=== PATIENT | female | born 1980 | race Caucasian/White ===

== ENCOUNTER 2018-06-09 12:01 | Emergency (ER) | payer MEDICAID ==
[2018-06-09] MEDS ORDERED: SODIUM CHLORIDE 0.9% (FLUSH) 10 ML SYG IV PRN (13:18)
[2018-06-09] MEDS ORDERED: SODIUM CHLORIDE 0.9% 1000ML 1,000 ML IVS PRN (13:18)
[2018-06-09] MEDS ORDERED: IPRATROPIUM/ALBUTEROL 3 ML VIAL INH ONE (13:18)
[2018-06-09] MEDS ORDERED: ONDANSETRON INJ 4 MG/2 ML VIAL IV ONE (13:20)
[2018-06-09] MEDS ORDERED: KETOROLAC TROMETHAMINE INJ 30 MG/ML VIAL IV ONE (13:20)
--- NOTE | 2018-06-09 13:55 | ED.PDOC ---
History of Present Illness - General Chief Complaint: General Stated Complaint: COUGH Time Seen by Provider: 06/09/18 12:56 Source: patient Exam Limitations: no limitations - History of Present Illness Initial Comments: PT PRESENTS TO THE ED FROM CLINIC DUE TO COUGH FOR THE PAST 5 WEEKS PRODUCTIVE OF GREENISH BLOOD TINGED SPUTUM. PT REPORTS SOB, NAUSEA, VOMITING, AND RIGHT SIDED ABDOMINAL PAIN FOR THE PAST 5 WEEKS WELL. PT WAS FOUND TO BE HYPERTENSIVE IN CLINIC AND TOLD TO COME TO THE ED FOR EVALUATION. Timing/Duration: getting worse Severity: moderate Improving Factors: nothing Worsening Factors: nothing Associated Symptoms: cough, nausea/vomiting, shortness of breath Allergies/Adverse Reactions: Allergies NSAIDs Allergy (Verified 06/09/18 14:22) Home Medications: Ambulatory Orders Albuterol Inhaler [Ventolin Hfa Inhaler] 2 puff INH Q4HR PRN #1 inh 06/09/18 Azithromycin Tab [Zithromax] 250 mg PO QD #4 tab 06/09/18 Benzonatate Perles [Tessalon Perles] 200 mg PO TID PRN #30 cap 06/09/18 Prednisone 50 mg PO DAILY 4 Days #4 tab 06/09/18 Tramadol-Acetaminophen [Ultracet] 1 - 2 tab PO Q6HR PRN #30 tab 06/09/18 Review of Systems - Review of Systems Constitutional: Denies: chills, fever EENTM: Denies: nose congestion, throat pain Respiratory: States: cough, short of breath Cardiology: Denies: chest pain, palpitations Gastrointestinal/Abdominal: States: see HPI, abdominal pain, nausea, vomiting Genitourinary: Denies: dysuria, frequency Musculoskeletal: Denies: joint pain, joint swelling Skin: Denies: dryness, lesions Neurological: Denies: headache, numbness Past Medical History (General) - Patient Medical History Surgical History: appendectomy, cholecystectomy, other - HYSTERECTOMY Physical Exam - Physical Exam General Appearance: Alert, No apparent distress, Obese, Well Groomed, Well Hydrated Eye Exam: bilateral normal Ears, Nose, Throat: hearing grossly normal Neck: supple, normal inspection Respiratory: no respiratory distress, wheezing Cardiovascular/Chest: regular rate, rhythm, no murmur Gastrointestinal/Abdominal: soft, tenderness - RUQ Neurologic: alert, normal mood/affect, oriented x 3 Skin Exam: normal color, warm/dry Progress - Progress Progress: 06/09/18 15:17 PT CONTINUES TO COMPLAIN OF PAIN DESPITE [place] IN THE ED. LABS AND DIAGNOSTICS DISCUSSED. WILL D/C WITH TX FOR ACUTE BRONCHITIS AND ABD WALL PAIN. - Results/Orders Results/Orders: Laboratory Tests 06/09/18 06/09/18 13:00 13:00 WBC 9.2 RBC 5.29 Hgb 14.3 Hct 42.5 MCV 80.2 L MCH 26.9 L MCHC 33.6 RDW 13.9 Plt Count 385 MPV 8.0 Absolute Neuts (auto) 6.20 Absolute Lymphs (auto) 1.80 Absolute Monos (auto) 0.70 Absolute Eos (auto) 0.40 Absolute Basos (auto) 0.10 Neutrophils % 67.2 Lymphocytes % 19.5 L Monocytes % 7.6 Eosinophils % 4.9 Basophils % 0.8 Sodium 134 L Potassium 3.8 Chloride 101 Carbon Dioxide 22 Anion Gap 14.8 BUN 12 Creatinine 0.54 L BUN/Creatinine Ratio 22.2 H Random Glucose 113 H Serum Osmolality 268.8 L Calcium 8.8 Total Bilirubin 0.7 AST 69 H ALT 55 Alkaline Phosphatase 66 B-Natriuretic Peptide 6.4 Serum Total Protein 7.5 Albumin 3.5 Globulin 4.0 H Albumin/Globulin Ratio 0.9 L - EKG/XRAY/CT EKG: Sinus - @92BPM, QTC 482 MS, NL AXIS, POOR R WAVE PROGRESSION, no ST T wave changes - NO OLD EKG FOR COMPARISON. Departure - Departure Clinical Impression: Acute bronchitis, Abdominal wall pain, Tobacco abuse, Nausea and vomiting Time of Disposition: 15:19 Disposition: Discharge to Home or Self Care Condition: Good Departure Forms: ED Discharge - Pt. Copy, Patient Portal Self Enrollment Instructions: Acute Bronchitis, Adult (DC), Quitting Smoking, Nausea and Vomiting, Adult (DC) Referrals: Floresita Ferrer PERISHABLE FREIGHT INSPECTOR [Primary Care Provider] - 1-5 Days Prescriptions: Albuterol Inhaler [Ventolin Hfa Inhaler] 2 puff INH Q4HR PRN #1 inh PRN Reason: Shortness Of Breath/Wheezing Tramadol-Acetaminophen [Ultracet] 1 - 2 tab PO Q6HR PRN #30 tab PRN Reason: Pain Azithromycin Tab [Zithromax] 250 mg PO QD #4 tab Benzonatate Perles [Tessalon Perles] 200 mg PO TID PRN #30 cap PRN Reason: Cough Prednisone 50 mg PO DAILY 4 Days #4 tab Home Medications: Ambulatory Orders Albuterol Inhaler [Ventolin Hfa Inhaler] 2 puff INH Q4HR PRN #1 inh 06/09/18 Azithromycin Tab [Zithromax] 250 mg PO QD #4 tab 06/09/18 Benzonatate Perles [Tessalon Perles] 200 mg PO TID PRN #30 cap 06/09/18 Prednisone 50 mg PO DAILY 4 Days #4 tab 06/09/18 Tramadol-Acetaminophen [Ultracet] 1 - 2 tab PO Q6HR PRN #30 tab 06/09/18
--- NOTE | 2018-06-09 14:06 | RAD ---
Procedure: XR CHEST 1 VIEW Exam Date: 06/09/2018 Ordering Provider: Molly Lindsay Clinical Indication: COUGH/SOB Comparison: 06/06/2018 Findings: Cardiomegaly. No focal lung consolidation. No pleural effusion. No pneumothorax. No acute osseous abnormality. Impression: 1. No acute abnormality in the chest. Electronically signed by: Leodan Jorge MD 06/09/2018 2:03 PM CDT
[2018-06-09] MEDS ORDERED: HYDROcodone 10MG/APAP 325MG 1 EA TAB PO ONE (14:30)
[2018-06-09] MEDS ORDERED: HYDROcodone 10MG/APAP 325MG 1 EA TAB ONE (14:30)
[2018-06-09] MEDS ORDERED: AZITHROMYCIN 250 MG TAB PO ONE (15:21)
[2018-06-09] MEDS ORDERED: predniSONE 20 MG TAB PO ONE (15:22)
[2018-06-11 11:30] VITALS: TEMP 98.1
[2018-06-11 11:39] VITALS: BP 152/89; O2SAT 94
== END 2018-06-09 15:25 | disposition home or self-care (01) ==
LOC: ER 12:01
DX: J20.9 Acute bronchitis, unspecified (principal); R10.9 Unspecified abdominal pain; R11.2 Nausea with vomiting, unspecified; F17.200 Nicotine dependence, unspecified, uncomplicated; Z88.6 Allergy status to analgesic agent; Z90.49 Acquired absence of other specified parts of digestive tract
CPT/HCPCS: 71045; 80053; 81001; 83880; 85025; 93005; 94640; J2405; J7030; J7512; J7620; Q0144

== ENCOUNTER → 2018-07-27 | Outpatient (CLI) | payer MEDICAID | LOC: SL 18:51 | PROVIDERS: ATTEND Nurse Practitioner Family | DX: G47.30 Sleep apnea, unspecified (principal) ==

== ENCOUNTER 2018-09-10 21:12 | Emergency (ER) | payer OTHER ==
[2018-09-10] MEDS ORDERED: CLOPIDOGREL 75 MG TAB PO ONE (21:31)
[2018-09-10] MEDS ORDERED: LACTATED RINGERS 1,000 ML IVS ONE (21:31)
--- NOTE | 2018-09-10 21:32 | ED.PDOC ---
History of Present Illness - General Chief Complaint: Chest Pain/SD Stated Complaint: chest pain for 4 days Time Seen by Provider: 09/10/18 21:30 Source: patient Exam Limitations: no limitations - History of Present Illness Initial Comments: Gina Holland 37 y/o female came to ER stating had constant chest heaviness- feel someone standing on her chest and stabbing pain right side of her chest for the last 4 days,with SOB and occasional N/V.Had cardiac cath 7 years ago was negative.She is taking medication for HBP. Timing/Duration: days - 4 Severity: moderate Location: central Activities at Onset: none Prior Chest Pain/Cardiac Workup: cardiac cath Improving Factors: nothing Worsening Factors: nothing Nitro Today/Relief: no nitro taken today Aspirin Treatment Today: no aspirin today - has allergies to NSAIDS-given plavix Allergies/Adverse Reactions: Allergies Cephalexin [From Keflex] Allergy (Verified 06/11/18 11:43) Nitrofurantoin [From Macrobid] Allergy (Verified 06/11/18 11:43) NSAIDs Allergy (Verified 06/09/18 14:22) Tramadol Allergy (Verified 07/17/18 17:56) Home Medications: Ambulatory Orders Carvedilol 6.25 mg PO BID 07/19/18 Alprazolam 0.5 mg PO DAILY 09/10/18 Citalopram Hydrobromide [Citalopram] 20 mg PO DAILY 09/10/18 Hydrochlorothiazide 25 mg PO DAILY 09/10/18 Losartan Potassium 50 mg PO DAILY 09/10/18 Nifedipine [Nifedipine ER] 30 mg PO DAILY 09/10/18 Pantoprazole Tablet [Protonix] 40 mg PO ACBK 09/10/18 Review of Systems - Review of Systems Constitutional: States: no symptoms reported EENTM: States: no symptoms reported Respiratory: States: no symptoms reported Cardiology: States: see HPI Gastrointestinal/Abdominal: States: no symptoms reported Genitourinary: States: no symptoms reported Musculoskeletal: States: no symptoms reported Skin: States: no symptoms reported Endocrine: States: no symptoms reported Hematologic/Lymphatic: States: no symptoms reported All other Systems: Reviewed and Negative, No Change from Baseline Past Medical History (General) - Patient Medical History Hx Stroke: No Hx of COPD: - Hx of treated TB Hx Cardiac Disorders: Yes Hx Congestive Heart Failure: No Hx Hypertension: Yes Hx Diabetes: No Hx Cancer: Yes - Cervical Surgical History: appendectomy, cholecystectomy, other - cardiac cath;hysterectomy - Vaccination History Hx Tetanus, Diphtheria Vaccination: Yes Hx Influenza Vaccination: No Hx Pneumococcal Vaccination: No - Social History Hx Tobacco Use: Yes Hx Physical Abuse: No Hx Emotional Abuse: No Family Medical History - Family History Mother Living Status: Still Living Hx Family Cancer: Yes - parents-small lung CA Physical Exam - Physical Exam General Appearance: Alert, Comfortable, No apparent distress Eyes, Ears, Nose, Throat Exam: normal ENT inspection Neck: non-tender, full range of motion, supple Respiratory: lungs clear, normal breath sounds, no respiratory distress, other - tenederness right rib cage Cardiovascular/Chest: normal peripheral pulses, regular rate, rhythm, no murmur Peripheral Pulses: radial,right: 2+, radial,left: 2+ Gastrointestinal/Abdominal: non tender, soft, no organomegaly Extremity: no pedal edema, no calf tenderness Neurologic: alert, oriented x 3 Skin Exam: normal color, warm/dry Lymphatic: no adenopathy Progress - Progress Progress: 09/10/18 23:30 Vital Signs - 8 hr 09/10/18 09/10/18 09/10/18 21:23 21:25 23:02 Pulse Rate [ 111 H 97 H Left] Respiratory 22 Rate Blood Pressure 114/85 106/64 [Right Radial Artery] O2 Sat by Pulse 97 95 91 L Oximetry 09/11/18 01:16 Discuss all test result with patient explaining no myocardial injury but her CTA-Chest with report of could not rule out small pulmonary embolus since inadequate visualization of pulmonary arteries due to inadequate dye uptake;Discuss further testing with V/Q scan with patient that she needs to be transferred to [facility] by ambulance where they have machine to perform the test since we could not repeat the CTA-chest w/c might cause kidney damage but declined to go will sign AMA and call up her primary Md in am. Discuss the seriousness of the findings and understands. - Results/Orders Results/Orders: Laboratory Tests 09/10/18 09/10/18 09/10/18 21:20 21:20 21:31 WBC 8.2 RBC 4.70 Hgb 12.7 Hct 37.6 MCV 80.0 L MCH 26.9 L MCHC 33.6 RDW 15.9 H Plt Count 268 MPV 7.0 L Absolute Neuts (auto) 3.90 Absolute Lymphs (auto) 3.10 Absolute Monos (auto) 0.80 Absolute Eos (auto) 0.20 Absolute Basos (auto) 0.10 Neutrophils % 47.9 Lymphocytes % 38.5 Monocytes % 10.0 H Eosinophils % 2.6 Basophils % 1.0 ESR PT 10.0 INR 1.00 PTT (SP) 28.0 D-Dimer, Quantitative 0.65 H* Sodium 137 Potassium 3.5 L Chloride 101 Carbon Dioxide 26 Anion Gap 13.5 BUN 15 Creatinine 0.71 BUN/Creatinine Ratio 21.1 H Random Glucose 144 H Serum Osmolality 277.2 Calcium 8.9 Magnesium 1.9 Total Bilirubin 0.6 Direct Bilirubin 0.1 Indirect Bilirubin 0.5 AST 49 H ALT 55 Alkaline Phosphatase 77 Creatine Kinase 20 L CK-MB (CK-2) 0.4 CK-MB (CK-2) % Not Reportable Troponin I < 0.02 B-Natriuretic Peptide < 5.0 Serum Total Protein 7.4 Albumin 3.4 Urine Color Urine Appearance Urine pH Ur Specific [place] Urine Protein Urine Glucose (UA) Urine Ketones Urine Blood Urine Nitrite Urine Bilirubin Urine Urobilinogen Ur Leukocyte Esterase Urine RBC Urine WBC Ur Epithelial Cells Urine Bacteria Urine Opiates Screen Positive H Urine Barbiturates Negative Ur Phencyclidine Scrn Negative U Amphetamin/Meth Scrn Negative U Benzodiazepines Scrn Positive H U Cocaine Metab Screen Negative U Cannabinoids Screen Negative 09/10/18 09/10/18 09/10/18 22:25 22:35 23:34 WBC RBC Hgb Hct MCV MCH MCHC RDW Plt Count MPV Absolute Neuts (auto) Absolute Lymphs (auto) Absolute Monos (auto) Absolute Eos (auto) Absolute Basos (auto) Neutrophils % Lymphocytes % Monocytes % Eosinophils % Basophils % ESR 37 H PT INR PTT (SP) D-Dimer, Quantitative Sodium Potassium Chloride Carbon Dioxide Anion Gap BUN Creatinine BUN/Creatinine Ratio Random Glucose Serum Osmolality Calcium Magnesium Total Bilirubin Direct Bilirubin Indirect Bilirubin AST ALT Alkaline Phosphatase Creatine Kinase CK-MB (CK-2) CK-MB (CK-2) % Troponin I < 0.02 B-Natriuretic Peptide Serum Total Protein Albumin Urine Color Yellow Urine Appearance Clear Urine pH 7.0 Ur Specific [place] 1.025 Urine Protein Negative Urine Glucose (UA) Negative Urine Ketones Negative Urine Blood Negative Urine Nitrite Negative Urine Bilirubin Negative Urine Urobilinogen 0.2 Ur Leukocyte Esterase Negative Urine RBC 0 Urine WBC 1-3 Ur Epithelial Cells 5-10 Urine Bacteria 2+ H Urine Opiates Screen Urine Barbiturates Ur Phencyclidine Scrn U Amphetamin/Meth Scrn U Benzodiazepines Scrn U Cocaine Metab Screen U Cannabinoids Screen - EKG/XRAY/CT EKG: Sinus, Tachy, no ST T wave changes, Unchanged from - 09 june 2018;17 Jul 2018 Comments: HR-115 XRAY: chest - no acute abnormalities Departure - Departure Clinical Impression: Elevated d-dimer Chest pain Qualifiers: Chest pain type: unspecified Qualified Code(s): R07.9 - Chest pain, unspecified Time of Disposition: 01:30 Disposition: Left Against Medical Advice Condition: Fair Departure Forms: ED Discharge - Pt. Copy, Patient Portal Self Enrollment Instructions: DI for Chest Pain Referrals: Floresita Ferrer NP [Primary Care Provider] - 1-2 Weeks Home Medications: Ambulatory Orders Carvedilol 6.25 mg PO BID 07/19/18 Alprazolam 0.5 mg PO DAILY 09/10/18 Citalopram Hydrobromide [Citalopram] 20 mg PO DAILY 09/10/18 Hydrochlorothiazide 25 mg PO DAILY 09/10/18 Losartan Potassium 50 mg PO DAILY 09/10/18 Nifedipine [Nifedipine ER] 30 mg PO DAILY 09/10/18 Pantoprazole Tablet [Protonix] 40 mg PO ACBK 09/10/18 Additional Instructions: Return to emergency room as needed
--- NOTE | 2018-09-10 21:51 | RAD ---
EXAM DESCRIPTION: AP view of the chest CLINICAL HISTORY:37 years Female, chest pain Comparison: None FINDINGS: No focal lung consolidation. Lung volumes are decreased. No pleural effusion. No pneumothorax. Cardiac and mediastinal silhouette is unremarkable. No acute osseous abnormality. Soft tissues are unremarkable. IMPRESSION: No acute findings. No focal lung consolidation. Electronically signed by: Jaxon Sullivan DO 09/10/2018 9:49 PM CDT
[2018-09-10] MEDS ORDERED: PROCHLORPERAZINE INJ 10 MG/2 ML VIAL IV ONE (22:11)
[2018-09-10] MEDS ORDERED: SUCRALFATE 1 GM/10 ML 1 GM UD PO ONE (22:11)
[2018-09-10] MEDS ORDERED: ALUM & MAG HYDROX-SIMETHICONE 30 ML, LIDOCAINE VISCOUS 2% 15 ML PO ONE ×2 (22:11)
[2018-09-10] MEDS ORDERED: MORPHINE SULFATE INJ 10 MG/ML VIAL IV ONE (22:11)
[2018-09-10] MEDS ORDERED: LIDOCAINE HCL 2% (MOUTH-THROAT) 15 ML UD ONE (22:13)
[2018-09-10] MEDS ORDERED: ALUM & MAG HYDROX-SIMETHICONE 30 ML UD ONE (22:14)
--- NOTE | 2018-09-10 23:37 | CT ---
PROCEDURE: CTA Chest CLINICAL HISTORY: 37 years Female elevated d- dimer;chest pain TECHNIQUE: Contiguous axial CT images obtained through the chest were obtained from the thoracic inlet to the level of the upper abdomen during the pulmonary arterial phase of intravenous contrast administration. Coronal and sagittal reformatted, and oblique coronal MIP images provided. This CT exam was performed according to our departmental dose-optimization program, which includes one or more of the following dose reduction techniques: automated exposure control, adjustment of the mA and/or kV according to patient size, and/or use of iterative reconstruction technique. COMPARISON: No prior exams provided for comparison. FINDINGS: Cannot exclude small pulmonary emboli on this examination, which is limited by suboptimal contrast. Opacification of the pulmonary arteries in the main pulmonary artery averages less than 200 HU. . The thoracic aorta is normal without aneurysm or dissection. The heart is borderline in size without pericardial effusion. The lungs are clear without consolidation, effusion, or pneumothorax. No enlarged mediastinal lymph nodes. Steatosis of the liver with suspected hepatosplenomegaly, incompletely imaged. No acute osseous abnormality. IMPRESSION: Cannot exclude small pulmonary emboli due to suboptimal contrast opacification of the pulmonary arteries. No visualized acute findings in the chest. Electronically signed by: Reyna Clark MD 09/10/2018 11:35 PM CDT
[2018-09-11 01:01] VITALS: O2SAT 95
[2018-09-11 01:03] VITALS: BP 95/66
[2018-09-11] MEDS ORDERED: HYDROCOD/APAP 7.5/325 (ER DISP) #3 TAB PO ONE (01:27)
[2018-09-11 01:43] VITALS: TEMP 97.9
== END 2018-09-11 01:36 | disposition left against medical advice (07) ==
LOC: ER 21:12
DX: R07.9 Chest pain, unspecified (principal); R79.89 Other specified abnormal findings of blood chemistry; R06.02 Shortness of breath; R11.2 Nausea with vomiting, unspecified; I51.9 Heart disease, unspecified; I10 Essential (primary) hypertension; Z53.29 Procedure and treatment not carried out because of patient's decision for other reasons; Z87.891 Personal history of nicotine dependence; Z85.41 Personal history of malignant neoplasm of cervix uteri; Z86.11 Personal history of tuberculosis; Z79.899 Other long term (current) drug therapy; Z88.1 Allergy status to other antibiotic agents; Z88.8 Allergy status to other drugs, medicaments and biological substances; Z88.6 Allergy status to analgesic agent; Z88.5 Allergy status to narcotic agent
CPT/HCPCS: 36415; 71045; 71275; 80048; 80076; 80307; 81001; 82550; 82553; 83880; 84484; 85025; 85379; 85610; 85651; 85730; 93005; 94760; J0780; J2270; J7120

== ENCOUNTER 2018-10-05 12:54 | Emergency (ER) | payer OTHER ==
[2018-10-05 13:42] VITALS: TEMP 98
--- NOTE | 2018-10-05 14:11 | ED.PDOC ---
History of Present Illness - General Chief Complaint: Problem Stated Complaint: anuria Time Seen by Provider: 10/05/18 13:39 Source: patient Exam Limitations: no limitations - History of Present Illness Initial Comments: Patient presents complaining that she is not able to urinate. She said that she went to a hospital in [place] 4 days ago with the same complaint and was "flown" to [place] for surgery by a urologist. She is unsure how to pronounce or spell his name. She says she had surgery to remove "scars" in the bladder. She was in the hospital in [place] until yesterday. Although initially she said that she has not urinated since Tuesday, further questioning confirmed that she had a urinary catheter until her discharge yesterday. She says that there has been a small amount of urine and blood from the urethra since then. She says she has pain at the bladder and claims that she got Dilaudid every 3 hours while in the hospital. She is on Levaquin and has an RX for hydrocodone/APAP 5/325. She says that she took one hydrocodone this morning. She had a similar problem 3 months ago and says she underwent surgery from the same surgeon. She also says that she has had N/V for four days as well. No other complaints. Timing/Duration: other - 4 days since she had retention. One day since having urinary retention after leaving the hospital Severity: moderate Improving Factors: nothing Worsening Factors: nothing Associated Symptoms: other - as in HPI Allergies/Adverse Reactions: Allergies Cephalexin [From Keflex] Allergy (Verified 06/11/18 11:43) Nitrofurantoin [From Macrobid] Allergy (Verified 06/11/18 11:43) NSAIDs Allergy (Verified 06/09/18 14:22) Tramadol Allergy (Verified 07/17/18 17:56) Home Medications: Ambulatory Orders Alprazolam 0.5 mg PO BID 09/10/18 DULoxetine HCL [Cymbalta] 30 mg PO DAILY 10/05/18 HYDROcodone 5MG/APAP 325MG [[place] 5/325] 1 ea PO Q4H PRN 10/05/18 Losartan Potassium & Hydrochlo [Losartan Potassium/Hydroc 50-12.5 mg] 1 tab PO DAILY 10/05/18 levoFLOXacin [Levaquin] 500 mg PO DAILY 10/05/18 Review of Systems - Review of Systems Constitutional: States: no symptoms reported EENTM: States: no symptoms reported Respiratory: States: no symptoms reported Cardiology: States: no symptoms reported Gastrointestinal/Abdominal: States: see HPI Genitourinary: States: see HPI Musculoskeletal: States: no symptoms reported Skin: States: no symptoms reported Neurological: States: no symptoms reported Endocrine: States: no symptoms reported Hematologic/Lymphatic: States: no symptoms reported Past Medical History (General) - Patient Medical History Hx Stroke: No Hx of COPD: - Hx of treated TB Hx Cardiac Disorders: Yes Hx Congestive Heart Failure: No Hx Hypertension: Yes Hx Diabetes: No Hx Gastroesophageal Reflux: Yes Hx Cancer: Yes - Cervical Surgical History: other - Vaccination History Hx Tetanus, Diphtheria Vaccination: Yes Hx Influenza Vaccination: No Hx Pneumococcal Vaccination: No - Social History Hx Tobacco Use: Yes Hx Physical Abuse: No Hx Emotional Abuse: No - Female History Patient : No Family Medical History - Family History Mother Family History: No Known Living Status: Still Living Hx Family Cancer: Yes - parents-small lung [place] Physical Exam - Physical Exam General Appearance: Alert Respiratory: lungs clear, normal breath sounds Cardiovascular/Chest: normal peripheral pulses, regular rate, rhythm Gastrointestinal/Abdominal: normal bowel sounds, non tender, soft, other - morbidly obese Skin Exam: normal color Progress - Progress Progress: 10/05/18 16:31 Patient refused a straight cath saying that she needed to be "knocked out" first. She was very insistent on Dilaudid. I called Dr. Duenas, her urologist in [place], and found out that she was not given as much Dilaudid that she claimed and that her urethral stricture had been successfully dilated and she had passage of urine yesterday that was sufficient to qualify for discharge. Dr. Duenas said she would not have lost the dilation in such a short period of time and confirmed that the patient is very fond of narcotics. He also confirmed that the patient did not need narcotics for a straight cath or a leg bag. She was offered the leg bag but refused because she could not get heavy narcotics, Dilaudid in particular, first....and in enough quantity to render her unconscious. I told her that we could place the leg bag or she could get a second opinion regarding that. She elected to go to [place] because she was sure she would be put under general anesthesia for a leg bag. 10/05/18 17:44 Dr. Guerra, E.R. physician, accepted her for transfer to [place]. The patient went by private vehicle. Departure - Departure Clinical Impression: Urinary retention Disposition: Transfer to Hospital Condition: Good Departure Forms: ED Discharge - Pt. Copy, Patient Portal Self Enrollment Diet: other - NPO Activity: other - as per your surgeon Referrals: Floresita Ferrer OIL WELL PERFORATOR OPERATOR [Primary Care Provider] - 1-2 Weeks Home Medications: Ambulatory Orders Alprazolam 0.5 mg PO BID 09/10/18 DULoxetine HCL [Cymbalta] 30 mg PO DAILY 10/05/18 HYDROcodone 5MG/APAP 325MG [[place] 5/325] 1 ea PO Q4H PRN 10/05/18 Losartan Potassium & Hydrochlo [Losartan Potassium/Hydroc 50-12.5 mg] 1 tab PO DAILY 10/05/18 levoFLOXacin [Levaquin] 500 mg PO DAILY 10/05/18 Additional Instructions: Go straight to the E.R. at [place]. You will be seen there and possibly receive a urological consult today.
[2018-10-05] MEDS: MORPHINE SULFATE INJ 10 MG/ML VIAL IV ONE (14:34)
[2018-10-05 18:11] VITALS: BP 165/111; O2SAT 97
== END 2018-10-05 17:22 | disposition short-term general hospital (02) ==
LOC: ER 12:54
DX: R33.9 Retention of urine, unspecified (principal); I51.9 Heart disease, unspecified; I10 Essential (primary) hypertension; K21.9 Gastro-esophageal reflux disease without esophagitis; Z87.891 Personal history of nicotine dependence; Z86.11 Personal history of tuberculosis; Z85.41 Personal history of malignant neoplasm of cervix uteri; Z79.899 Other long term (current) drug therapy; Z88.5 Allergy status to narcotic agent; Z88.6 Allergy status to analgesic agent; Z88.1 Allergy status to other antibiotic agents

== ENCOUNTER 2019-02-23 20:33 | Emergency (ER) | payer OTHER ==
[2019-02-23] MEDS ORDERED: ALUM & MAG HYDROX-SIMETHICONE 30 ML, LIDOCAINE VISCOUS 2% 15 ML PO ONE ×2 (20:50)
[2019-02-23] MEDS ORDERED: ONDANSETRON ODT 8 MG TAB SL ONE (20:50)
[2019-02-23] MEDS ORDERED: SODIUM CHLORIDE 0.9% 1000ML 1,000 ML IVS ONE (20:55)
[2019-02-23] MEDS ORDERED: ONDANSETRON 4 MG TAB PO ONE (20:56)
[2019-02-23] MEDS ORDERED: ALUM & MAG HYDROX-SIMETHICONE 30 ML UD ONE (21:00)
[2019-02-23] MEDS ORDERED: LIDOCAINE HCL 2% (MOUTH-THROAT) 15 ML UD ONE (21:00)
[2019-02-23] MEDS ORDERED: PANTOPRAZOLE SODIUM IV 40 MG VIAL IV ONE (21:25)
--- NOTE | 2019-02-23 21:27 | ED.PDOC ---
History of Present Illness - General Chief Complaint: Abdominal Pain Stated Complaint: Chest & ABD Pain, N/V Time Seen by Provider: 02/23/19 20:34 Information Source: patient, RN notes reviewed, Vital Signs reviewed Exam Limitations: no limitations - History of Present Illness Initial Comments: Patient presents for evaluation of abdominal pain, nausea, vomiting and diarrhea. Patient notes that she became nauseated and had the diarrhea prior to the pain. She denies any fevers, chills, constipation or recent sick contacts. Pain is a sharp, pins and needles sensation. She denies any recent sick contacts. No recent travel, surgeries, or leg swelling. She states that she has not been able to take her protonix after the vomiting and diarrhea started. She denies any dysuria, hematuria, or urinary frequency. Abdominal Pain Onset Location: epigastric Pain Radiation: periumbilical Quality: stabbing Timing/Duration: days - 3 Improving Factors: nothing Worsening Factors: nothing Associated Symptoms: diarrhea, nausea/vomiting Review of Systems - Review of Systems Constitutional: Denies: chills, fever EENTM: Denies: nose congestion Respiratory: Denies: cough Cardiology: Denies: chest pain Gastrointestinal/Abdominal: States: abdominal pain, diarrhea, nausea, vomiting Genitourinary: Denies: dysuria, frequency Musculoskeletal: Denies: back pain Neurological: Denies: headache Past Medical History (General) - Patient Medical History Hx Seizures: No Hx Stroke: No Hx of COPD: Yes - 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 Hx Congestive Heart Failure: No Hx Pacemaker: No Hx Hypertension: Yes Hx Thyroid Disease: No Hx Diabetes: No Hx Gastroesophageal Reflux: Yes Hx Cancer: Yes - Cervical Hx of HIV: No Hx MRSA: No Surgical History: Hysterectomy - Vaccination History Hx Tetanus, Diphtheria Vaccination: Yes Hx Influenza Vaccination: No Hx Pneumococcal Vaccination: No Immunizations Up to Date: No - Social History Hx Tobacco Use: Yes Hx Alcohol Use: No Hx Physical Abuse: No Hx Emotional Abuse: No - Female History Patient is a Female of Child Bearing Age (10 -59 yrs old): Yes Patient : No Family Medical History - Family History Mother Family History: No Known Living Status: Still Living Hx Family Cancer: Yes - parents-small lung CA Physical Exam - Physical Exam General Appearance: Alert, Unkempt, Other - Appears uncomfortable Neck: full range of motion, supple Respiratory: lungs clear, normal breath sounds, no respiratory distress, no accessory muscle use Cardiovascular/Chest: normal peripheral pulses, regular rate, rhythm, no edema, no gallop Peripheral Pulses: 2+ Gastrointestinal/Abdominal: soft, tenderness - Epigastrium, opal-umbilical Rectal Exam: deferred Back Exam: no CVA tenderness Neurologic: alert, normal mood/affect, oriented x 3 Skin Exam: normal color, warm/dry Progress - Progress Progress: Patient presented for evaluation of abdominal pain. EKG was not significant for underlying ischemic changes. Symptoms were inconsistent with ACS and troponin was WNL. Lipase was WNL and not suggestive of pancreatitis. There was no hepatic or biliary derangement. WBC was WNL. UA was not significant for hematuria to suggest renal stone. There was signs of UTI. Her symptoms were concerning for gastroenteritis and gastritis. She was given ODT Zofran with resolution in n ausea. She was given GI cocktail and protonix, which did make her look more comfortable however the patient continued to endorse severe pain. Therefore, fentanyl was administered. Shortly afterwards, patient started to state that she was anxious and stated she needed to take her Xanax. Re-examination was significant for a soft abdomen. Patient stated that she was tender in her RLQ and LLQ. Therefore, CT was ordered. While awaiting CT, patient continued to request narcotics. I discussed that we do not want to overlap narcotics and benzos to avoid respiratory suppression. Patient then immediately stated that she takes 2mg Xanax BID and couldn't even feel her medications that were given. "How long is this going to take. My family wants me to get home and wants to eat". CT was pending. While awaiting for CT read, patient stated she needed to leave. Right before requesting to leave, patient was requesting more narcotics. There is concerns for possible drug seeking tendencies and behaviors with this pattern. Patient was signed out AMA. CT did not show any acute diverticulitis or surgical abnormalities. Symptoms are likely from fecal retention and gastritis. - Results/Orders Results/Orders: 02/23/19 20:45 EKG STAT 02/23/19 21:35 Urine Culture Stat 02/23/19 22:16 Hold Metformin x 48Hrs [id number] Abdomen/Pelvis w/Contrast [CT] Stat Laboratory Results WBC 9.7 K/mm3 (4.8-10.8) 02/23/19 20:54 RBC 5.12 M/mm3 (4.20-5.40) 02/23/19 20:54 Hgb 13.2 gm/dL (12.0-16.0) 02/23/19 20:54 Hct 39.6 % (36.0-47.0) 02/23/19 20:54 MCV 77.4 fl (81.0-99.0) L 02/23/19 20:54 MCH 25.8 pg (27.0-31.0) L 02/23/19 20:54 MCHC 33.4 g/dL (33.0-37.0) 02/23/19 20:54 RDW 14.6 % (11.5-14.5) H 02/23/19 20:54 Plt Count 339 K/mm3 (130-400) 02/23/19 20:54 MPV 7.4 fl (7.40-10.4) 02/23/19 20:54 Absolute Neuts (auto) 6.20 K/uL (1.8-6.8) 02/23/19 20:54 Absolute Lymphs (auto) 2.20 K/uL (1.0-3.4) 02/23/19 20:54 Absolute Monos (auto) 0.80 K/uL (0.2-0.8) 02/23/19 20:54 Absolute Eos (auto) 0.50 K/uL (0.0-0.4) H 02/23/19 20:54 Absolute Basos (auto) 0.10 K/uL (0.0-0.1) 02/23/19 20:54 Neutrophils % 64.0 % (42.0-78.0) 02/23/19 20:54 Lymphocytes % 22.5 % (20.0-50.0) 02/23/19 20:54 Monocytes % 8.3 % (2.0-9.0) 02/23/19 20:54 Eosinophils % 4.7 % (1.0-5.0) 02/23/19 20:54 Basophils % 0.5 % (0.0-2.0) 02/23/19 20:54 Sodium 139 mmol/L (135-145) 02/23/19 20:55 Potassium 3.7 mmol/L (3.6-5.0) 02/23/19 20:55 Chloride 101 mmol/L (101-111) 02/23/19 20:55 Carbon Dioxide 29 mmol/L (21-31) 02/23/19 20:55 Anion Gap 12.7 (12-18) 02/23/19 20:55 BUN 10 mg/dL (7-18) 02/23/19 20:55 Creatinine 0.67 mg/dL (0.6-1.3) 02/23/19 20:55 BUN/Creatinine Ratio 14.9 (10-20) 02/23/19 20:55 Random Glucose 102 mg/dL (70-105) 02/23/19 20:55 Serum Osmolality 276.8 mOsm/L (275-295) 02/23/19 20:55 Lactic Acid 1.1 mmol/L (0.5-2.2) 02/23/19 20:55 Calcium 9.1 mg/dL (8.4-10.2) 02/23/19 20:55 Total Bilirubin 0.5 mg/dL (0.2-1.0) 02/23/19 20:55 AST 20 IU/L (10-42) 02/23/19 20:55 ALT 23 IU/L (10-60) 02/23/19 20:55 Alkaline Phosphatase 55 IU/L (42-121) 02/23/19 20:55 Troponin I < 0.02 ng/mL (0.01-0.05) 02/23/19 20:55 Serum Total Protein 7.2 gm/dL (6.4-8.2) 02/23/19 20:55 Albumin 3.4 g/dl (3.2-5.5) 02/23/19 20:55 Globulin 3.8 gm/dL (2.3-3.5) H 02/23/19 20:55 Albumin/Globulin Ratio 0.9 (1.1-1.9) L 02/23/19 20:55 Lipase 32 U/L (22-51) 02/23/19 20:55 Urine Color Yellow (Yellow) 02/23/19 21:35 Urine Appearance Cloudy (Clear) 02/23/19 21:35 Urine pH 5.5 (4.5-7.8) 02/23/19 21:35 Ur Specific [place] 1.020 (1.005-1.030) 02/23/19 21:35 Urine Protein Negative mg/dL 02/23/19 21:35 Urine Glucose (UA) Negative mg/dL (Negative) 02/23/19 21:35 Urine Ketones Negative mg/dL (NEGATIVE) 02/23/19 21:35 Urine Blood Negative (Negative) 02/23/19 21:35 Urine Nitrite Positive H 02/23/19 21:35 Urine Bilirubin Negative (NEGATIVE) 02/23/19 21:35 Urine Urobilinogen 0.2 mg/dL (0.2-1.0) 02/23/19 21:35 Ur Leukocyte Esterase Negative (Negative) 02/23/19 21:35 Urine RBC 0 /hpf 02/23/19 21:35 Urine WBC 10-20 /hpf H 02/23/19 21:35 Ur Epithelial Cells 10-20 /hpf 02/23/19 21:35 Urine Bacteria 2+ H 02/23/19 21:35 CT Abdomen Pelvis w/IV Contrast EXAM: CT Abdomen and Pelvis With Intravenous Contrast CLINICAL HISTORY: 38 years old Female; RLQ and LLQ Pain. Assess for diverticulitis. TECHNIQUE: Axial computed tomography images of the abdomen and pelvis with intravenous contrast. Sagittal and coronal reformatted images were created and reviewed. This CT exam was performed using one or more of the following dose reduction techniques: automated exposure control, adjustment of the mA and/or kV according to patient size, and/or use of iterative reconstruction technique. CONTRAST: 100 mL Optiray 320 IV. COMPARISON: No relevant prior studies available. FINDINGS: LUNG BASES: Minimal dependent atelectasis in the lung bases. HEART: Borderline panchamber cardiomegaly and no pericardial fluid seen. ABDOMEN: LIVER: Liver somewhat prominent and somewhat fatty replaced without focal abnormality seen. GALLBLADDER AND BILE DUCTS: Status post cholecystectomy. PANCREAS: Unremarkable. No mass. No ductal dilation. SPLEEN: No splenomegaly or focal abnormality seen. ADRENALS: Unremarkable. No mass. 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 No renal/ureteral stone or hydroureteronephrosis seen bilaterally. No apparent renal mass. STOMACH AND BOWEL: Significant fecal retention and areas of colonic spasm in the proximal colon without apparent bowel obstruction, despite the presence of a broad-based ventral pelvic wall hernia which contains multiple small bowel loops. No significant colonic diverticular changes and no CT evidence of acute diverticulitis. PELVIS: APPENDIX: Appendix not visualized with postsurgical changes associated with the cecal pole which are most consistent with prior appendectomy. BLADDER: No urinary bladder wall thickening or filling defect seen. REPRODUCTIVE: Status post hysterectomy. No cyst or mass identified in the pelvis bilaterally. ABDOMEN and PELVIS: INTRAPERITONEAL SPACE: No pneumoperitoneum. No free fluid or loculated fluid collection seen. BONES/JOINTS: No acute bony abnormality seen. Chronic bony changes and degenerative disc disease noted which is worst in the thoracic spine and includes multilevel vacuum disc phenomena. Mild diastasis of the pubic symphysis. SOFT TISSUES: See above. VASCULATURE: No acute abnormality seen. LYMPH NODES: No pathologic lymphadenopathy identified. IMPRESSION: - Significant fecal retention and areas of colonic spasm in the proximal colon without apparent bowel obstruction, despite the presence of a broad-based ventral pelvic wall hernia which contains multiple small bowel loops. No significant colonic diverticular changes and no CT evidence of acute diverticulitis. 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 - Chronic and postsurgical changes. Thank you for allowing us to participate in the care of this patient. Electronically signed by: Zach Griffin MD 02/24/2019 12:23 AM [facility] - EKG/XRAY/CT Comments: Sinus tachycardia with rate of 107. No ST changes. Normal axis and interval Departure - Departure Clinical Impression: Gastroenteritis Gastritis Qualifiers: Gastritis type: unspecified gastritis Chronicity: acute Gastritis bleeding: without bleeding Qualified Code(s): K29.00 - Acute gastritis without bleeding Abdominal pain Qualifiers: Abdominal location: lower abdomen, unspecified Qualified Code(s): R10.30 - Lower abdominal pain, unspecified UTI (urinary tract infection) Qualifiers: Urinary tract infection type: site unspecified Hematuria presence: without hematuria Qualified Code(s): N39.0 - Urinary tract infection, site not specified Disposition: Left Against Medical Advice Condition: Good Departure Forms: ED Discharge - Pt. Copy, Patient Portal Self Enrollment Instructions: DI for Abdominal Pain-Adult Prescriptions: Ondansetron Odt [Zofran ODT] 4 mg PO Q8H PRN #6 tab PRN Reason: Nausea Sulfamethoxazole-Trimethoprim [Bactrim Ds 800-160 mg] 1 tab PO BID 10 Days #20 tab Home Medications: Ambulatory Orders Alprazolam 0.5 mg PO BID 09/10/18 DULoxetine HCL [Cymbalta] 30 mg PO DAILY 10/05/18 HYDROcodone 5MG/APAP 325MG [[place] 5/325] 1 ea PO Q4H PRN 10/05/18 Losartan Potassium & Hydrochlo [Losartan Potassium/Hydroc 50-12.5 mg] 1 tab PO DAILY 10/05/18 levoFLOXacin [Levaquin] 500 mg PO DAILY 10/05/18 Ondansetron Odt [Zofran ODT] 4 mg PO Q8H PRN #6 tab 02/23/19 Sulfamethoxazole-Trimethoprim [Bactrim Ds 800-160 mg] 1 tab PO BID 10 Days #20 tab 02/23/19 Comments: Donavon Velazco D.O. [place]#[id number]
[2019-02-23] MEDS ORDERED: fentaNYL CITRATE INJ 50 MCG/ML AMP IV ONE (22:16)
[2019-02-23] MEDS ORDERED: MORPHINE SULFATE INJ 10 MG/ML VIAL IV ONE (23:31)
[2019-02-24 00:08] VITALS: BP 177/116; TEMP 97.8; O2SAT 97
--- NOTE | 2019-02-24 00:25 | CT ---
EXAM: CT Abdomen and Pelvis With Intravenous Contrast CLINICAL HISTORY: 38 years old Female; RLQ and LLQ Pain. Assess for diverticulitis. TECHNIQUE: Axial computed tomography images of the abdomen and pelvis with intravenous contrast. Sagittal and coronal reformatted images were created and reviewed. This CT exam was performed using one or more of the following dose reduction techniques: automated exposure control, adjustment of the mA and/or kV according to patient size, and/or use of iterative reconstruction technique. CONTRAST: 100 mL Optiray 320 IV. COMPARISON: No relevant prior studies available. FINDINGS: LUNG BASES: Minimal dependent atelectasis in the lung bases. HEART: Borderline panchamber cardiomegaly and no pericardial fluid seen. ABDOMEN: LIVER: Liver somewhat prominent and somewhat fatty replaced without focal abnormality seen. GALLBLADDER AND BILE DUCTS: Status post cholecystectomy. PANCREAS: Unremarkable. No mass. No ductal dilation. SPLEEN: No splenomegaly or focal abnormality seen. ADRENALS: Unremarkable. No mass. 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 No renal/ureteral stone or hydroureteronephrosis seen bilaterally. No apparent renal mass. STOMACH AND BOWEL: Significant fecal retention and areas of colonic spasm in the proximal colon without apparent bowel obstruction, despite the presence of a broad-based ventral pelvic wall hernia which contains multiple small bowel loops. No significant colonic diverticular changes and no CT evidence of acute diverticulitis. PELVIS: APPENDIX: Appendix not visualized with postsurgical changes associated with the cecal pole which are most consistent with prior appendectomy. BLADDER: No urinary bladder wall thickening or filling defect seen. REPRODUCTIVE: Status post hysterectomy. No cyst or mass identified in the pelvis bilaterally. ABDOMEN and PELVIS: INTRAPERITONEAL SPACE: No pneumoperitoneum. No free fluid or loculated fluid collection seen. BONES/JOINTS: No acute bony abnormality seen. Chronic bony changes and degenerative disc disease noted which is worst in the thoracic spine and includes multilevel vacuum disc phenomena. Mild diastasis of the pubic symphysis. SOFT TISSUES: See above. VASCULATURE: No acute abnormality seen. LYMPH NODES: No pathologic lymphadenopathy identified. IMPRESSION: - Significant fecal retention and areas of colonic spasm in the proximal colon without apparent bowel obstruction, despite the presence of a broad-based ventral pelvic wall hernia which contains multiple small bowel loops. No significant colonic diverticular changes and no CT evidence of acute diverticulitis. 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 - Chronic and postsurgical changes. Thank you for allowing us to participate in the care of this patient. Electronically signed by: Zach Griffin MD 02/24/2019 12:23 AM [facility]
== END 2019-02-24 00:07 | disposition home or self-care (01) ==
LOC: ER 20:33
DX: K52.9 Noninfective gastroenteritis and colitis, unspecified (principal); K29.00 Acute gastritis without bleeding; N39.0 Urinary tract infection, site not specified; R00.0 Tachycardia, unspecified; J44.9 Chronic obstructive pulmonary disease, unspecified; I10 Essential (primary) hypertension; K21.9 Gastro-esophageal reflux disease without esophagitis; Z53.29 Procedure and treatment not carried out because of patient's decision for other reasons; Z85.41 Personal history of malignant neoplasm of cervix uteri; Z87.891 Personal history of nicotine dependence; Z86.11 Personal history of tuberculosis
CPT/HCPCS: 36415; 74177; 80053; 81001; 83605; 83690; 84484; 85025; 87077; 87086; 87186; 93005; J2060; J2270; J3010; J7030